=== PATIENT | female | born 1990 | race Caucasian/White ===

== ENCOUNTER 2017-05-17 05:50 | Day surgery (SDC) | payer BC ==
[2017-05-17] MEDS ORDERED: SUBLIMAZE 100 MCG/2 ML IV ONE (05:51)
[2017-05-17] MEDS ORDERED: Decadron 4 MG INJ IV ONE (05:51)
[2017-05-17] MEDS ORDERED: Zofran 4 MG/2 ML VIAL IV ONE (05:51)
[2017-05-17] MEDS ORDERED: TORAdol 30 mg Injection IV ONE (05:51)
[2017-05-17] MEDS ORDERED: DIPRIVAN 200 MG/20 ML IV ONE (05:51)
[2017-05-17] MEDS ORDERED: Versed 2 MG/2 ML Injection IV ONE (05:51)
[2017-05-17] MEDS ORDERED: Lactated Ringers 1,000 ML IV ONE (06:06)
[2017-05-17] MEDS ORDERED: ARZOL Silver Nitrate Applicator TP ONE (06:22)
[2017-05-17] MEDS ORDERED: ASTRINGYN 8 GM TP ONE (06:22)
[2017-05-17] MEDS ORDERED: Lactated Ringers 1,000 ML IV SCH (06:30)
[2017-05-17 08:59] VITALS: O2SAT 96
[2017-05-17 09:29] VITALS: BP 124/60; PULSE 75
--- NOTE | 2017-05-17 09:42 | OP ---
SURGERY DATE/TIME: 05/17/2017 0727 PREOPERATIVE DIAGNOSIS: Blighted ovum. POSTOPERATIVE DIAGNOSIS: Blighted ovum. PROCEDURE: Suction dilatation and curettage. SURGEON: Alvino Rivera M.D. ANESTHESIA: General by Cain Cordova CRNA. ESTIMATED BLOOD LOSS: Less than 50 cc. SPECIMEN: Products of conception. DESCRIPTION OF PROCEDURE: After informed, written consent was obtained, the patient was taken to the operating room. She underwent general anesthesia and was prepped and draped in the dorsal lithotomy position. A weighted speculum was inserted and anterior edge of the cervix was grasped with a single tooth tenaculum. Sound was used with a uterine sound depth of 7 cm. Hegar dilators were then used to dilate the cervix up to a size 31. An 8 [place] suction catheter was used to curette the uterine cavity with products of conception visibly removed from the uterine cavity. Several passes were made in all four quadrants of the uterus with what appeared to be adequate removal of uterine contents. The tenaculum was then removed. There was some oozing from the tenaculum site so MonoSol solution was placed with a Q-Tip and provided good hemostasis. Estimated blood loss was minimal. The patient tolerated the procedure well and transferred to the recovery room in good condition.
== END 2017-05-17 09:20 | disposition home or self-care (01) ==
LOC: SDC 05:50
PROVIDERS: ATTEND Family Medicine
PROC: 10D07Z8 Extraction of Products of Conception, Other, Via Natural or Artificial Opening (ICD-10-PCS; principal; 2017-05-17)
DX: O02.0 Blighted ovum and nonhydatidiform mole (principal)
CPT/HCPCS: 01965; 88305; J1100; J1885; J2250; J2405; J2704; J3010; A9270-GY